=== PATIENT | female | born 1985 | race African-American/Black ===

== ENCOUNTER → 2016-06-12 | Outpatient (REF) | payer OTHER | LOC: M SMT 13:12 | PROVIDERS: ATTEND Nurse Practitioner Women's Health | DX: N39.0 Urinary tract infection, site not specified (principal) ==

== ENCOUNTER → 2016-06-24 | Outpatient (CLI) | payer OTHER ==
--- NOTE | 2016-06-24 14:20 | REP ---
REASON FOR EXAM: History of urinary tract infection. COMPARISON EXAMINATION: None. In addition to standard renal ultrasound, urinary bladder ultrasonography was performed to obtain pre- and postvoid urinary bladder volume calculations. FINDINGS: Multiple ultrasonographic images of the right kidney show the right kidney to measure 9.1 x 6 x 3.7 cm. The renal cortical echotexture is unremarkable. There are no masses. There is good corticomedullary differentiation. There is no hydronephrosis. There are no perinephric fluid collections. Multiple ultrasonographic images of the right kidney show the left kidney to measure 11.4 x 6 x 6 cm. The renal cortical echotexture is unremarkable. There are no masses. There is good corticomedullary differentiation. There is no hydronephrosis. There are no perinephric fluid collections. The pre void urinary bladder volume calculation is 155 mL and the post void calculation is 34 mL. IMPRESSION: Unremarkable renal ultrasonography. Signed by Phillip Maloney DO 06/24/2016 03:49 P
== END ==
LOC: M SMT 13:10
PROVIDERS: ATTEND Nurse Practitioner Women's Health
DX: N39.0 Urinary tract infection, site not specified (principal)

== ENCOUNTER → 2017-01-23 | Outpatient (CLI) | payer OTHER ==
--- NOTE | 2017-01-23 11:21 | REP ---
TRIPLE PHASE BONE SCAN, LOWER LEGS: Following the intravenous administration of 22 millicuries technetium 99m MDP, the patient's lower legs are imaged in the flow phase in the anterior and posterior projections showing symmetrical blood flow. Immediate blood pool and 2.5 hour delayed images are performed in the anterior, posterior and both lateral projections. There is slight increased blood pooling with focal increased delayed activity in the proximal tibiae bilaterally posterior aspect. Findings are consistent with bilateral focal stress fractures of the posterior aspect of the proximal tibias bilaterally. Signed by Amadou Cleary MD 01/23/2017 05:17 P
== END ==
LOC: M RAD 07:27
PROVIDERS: ATTEND Physical Therapist
DX: M84.361A Stress fracture, right tibia, initial encounter for fracture (principal); M84.362A Stress fracture, left tibia, initial encounter for fracture; X58.XXXA Exposure to other specified factors, initial encounter; Y93.9 Activity, unspecified; Y92.9 Unspecified place or not applicable; Y99.8 Other external cause status
CPT/HCPCS: 78315; A9503

== ENCOUNTER → 2017-03-10 | Outpatient (REF) | payer OTHER | LOC: M SMT 16:54 | PROVIDERS: ATTEND Nurse Practitioner Women's Health | DX: N39.0 Urinary tract infection, site not specified (principal) | CPT/HCPCS: 81001; 87088; 87186; G0463 ==

== ENCOUNTER → 2017-08-19 | Outpatient (REF) | payer OTHER ==
[2017-08-19 13:07] LABS: APPEARANCE, URINE HAZY (CLEAR); BACTERIA, URINE AUTO NEGATIVE (NEGATIVE); BILIRUBIN, URINE AUTO NEGATIVE (NEGATIVE); BLOOD, URINE BLOOD NEGATIVE (NEGATIVE); COLOR, URINE YELLOW (YELLOW); GLUCOSE, URINE (UA) AUTO NEGATIVE (NEGATIVE); KETONE, URINE AUTO TRACE mg/dL (NEGATIVE); LEUKOCYTE ESTERASE, URINE AUTO NEGATIVE (NEGATIVE); MUCUS, URINE SMALL (NEGATIVE); NITRITE, URINE AUTO NEGATIVE (NEGATIVE); PROTEIN, URINE AUTO NEGATIVE (NEGATIVE); RBC, URINE AUTO 0 /HPF (0-3); SPECIFIC GRAVITY URINE AUTO 1.029 (1.002-1.035); SQUAMOUS EPITHELIAL CELL UR AU 1 /HPF (0-6); UROBILINOGEN, URINE AUTO 0.2 mg/dL (0.0-2.0); WBC, URINE AUTO 0 /HPF (0-3)
== END ==
LOC: M SMT 12:41
DX: R35.0 Frequency of micturition (principal)